=== PATIENT | male | born 1960 | race Caucasian/White ===

== ENCOUNTER 2020-04-03 14:27 | Inpatient (IN) | payer OTHER ==
[~2020-04-03] VITALS: Ht 182.9 cm; Wt 140.6 kg
[~2020-04-03 14:27] MED LIST: ZANTAC 150 MG150 MG PO
[2020-04-03 15:35] LABS: HEMOGLOBIN 14.4 gm/dl (14.0-17.5); RED BLOOD COUNT 4.71 M/UL (4.20-5.50); WHITE BLOOD COUNT 3.3 K/UL (4.5-11.0)
[2020-04-03 16:02] LABS: BUN/CREATININE RATIO 22 (0-10)
[2020-04-03] MEDS ORDERED: VENTOLIN HFA 66.7 GM INH (16:39)
[2020-04-04] MEDS ORDERED: LASIX20 MG PO (01:44)
[2020-04-04] MEDS ORDERED: JANUMET 50-5001 EACH PO (01:44)
[2020-04-04] MEDS ORDERED: LOPRESSOR100 MG PO (01:45)
[2020-04-04] MEDS ORDERED: ALLOPURINOL300 MG PO (01:45)
[2020-04-04] MEDS ORDERED: TEGRETOL 200 M200 MG PO (01:46)
[2020-04-04] MEDS ORDERED: K-DUR TAB 10 M10 MEQ PO (01:46)
[2020-04-04] MEDS ORDERED: FLOMAX 0.4 MG0.4 MG PO (01:47)
[2020-04-04] MEDS ORDERED: FLONASE ALLER15.8 ML (01:48)
[2020-04-04] MEDS ORDERED: FINASTERIDE5 MG PO (01:49)
[2020-04-04] MEDS ORDERED: COZAAR100 MG PO (01:49)
[2020-04-04 02:15] LABS: HEMOGLOBIN 14.2 gm/dl (14.0-17.5); RED BLOOD COUNT 4.72 M/UL (4.20-5.50); WHITE BLOOD COUNT 3.1 K/UL (4.5-11.0)
[2020-04-05 05:59] LABS: HEMOGLOBIN 14.5 gm/dl (14.0-17.5); RED BLOOD COUNT 4.78 M/UL (4.20-5.50)
[2020-04-05 06:01] LABS: WHITE BLOOD COUNT 4.9 K/UL (4.5-11.0)
[2020-04-05 06:19] LABS: BUN/CREATININE RATIO 18 (0-10)
[2020-04-07 06:25] LABS: HEMOGLOBIN 13.6 gm/dl (14.0-17.5); RED BLOOD COUNT 4.52 M/UL (4.20-5.50); WHITE BLOOD COUNT 5.3 K/UL (4.5-11.0)
[2020-04-07 06:54] LABS: BUN/CREATININE RATIO 17 (0-10)
[2020-04-08 13:23] LABS: RED BLOOD COUNT 4.63 M/UL (4.20-5.50); WHITE BLOOD COUNT 4.9 K/UL (4.5-11.0)
[2020-04-08 13:50] LABS: BUN/CREATININE RATIO 20 (0-10)
[2020-04-09 06:59] LABS: HEMOGLOBIN 13.3 gm/dl (14.0-17.5); RED BLOOD COUNT 4.47 M/UL (4.20-5.50); WHITE BLOOD COUNT 5.3 K/UL (4.5-11.0)
[2020-04-09 07:24] LABS: BUN/CREATININE RATIO 18 (0-10)
[2020-04-10] MEDS ORDERED: VENTOLIN HFA 66.7 GM INH (12:44)
[2020-04-10] MEDS ORDERED: DECADRON6 MG PO (12:44)
[2020-04-10] MEDS ORDERED: LOPRESSOR 50 MG50 MG PO (12:44)
== END 2020-04-10 15:00 | disposition home or self-care (01) | DRG 871 ==
LOC: ER1 14:27 → CDU 17:46 → MED SURG 4 17:46 → CDU 17:46 → MED SURG 4 20:53
PROVIDERS: Emergency Medicine; Internal Medicine; Internal Medicine Infectious Disease; ADMIT Internal Medicine
PROC: 8E0ZXY6 Isolation (ICD-10-PCS; principal; 2020-04-03)
PROC: XW033F6 Introduction of Bamlanivimab Monoclonal Antibody into Peripheral Vein, Percutaneous Approach, New Technology Group 6 (ICD-10-PCS; 2020-04-03)
PROC: XW033E5 Introduction of Remdesivir Anti-infective into Peripheral Vein, Percutaneous Approach, New Technology Group 5 (ICD-10-PCS; 2020-04-04)
PROC: XW13325 Transfusion of Convalescent Plasma (Nonautologous) into Peripheral Vein, Percutaneous Approach, New Technology Group 5 (ICD-10-PCS; 2020-04-05)
PROC: 5A09357 Assistance with Respiratory Ventilation, Less than 24 Consecutive Hours, Continuous Positive Airway Pressure (ICD-10-PCS; 2020-04-09)
DX: A41.89 Other specified sepsis (principal); U07.1 COVID-19; J12.82 Pneumonia due to coronavirus disease 2019; J96.01 Acute respiratory failure with hypoxia; J18.9 Pneumonia, unspecified organism; D61.818 Other pancytopenia; Z68.41 Body mass index [BMI] 40.0-44.9, adult; I10 Essential (primary) hypertension; E66.01 Morbid (severe) obesity due to excess calories; K21.9 Gastro-esophageal reflux disease without esophagitis; E11.40 Type 2 diabetes mellitus with diabetic neuropathy, unspecified; D69.6 Thrombocytopenia, unspecified; D72.819 Decreased white blood cell count, unspecified; Z79.899 Other long term (current) drug therapy; Z90.49 Acquired absence of other specified parts of digestive tract
CPT/HCPCS: 36415; 36600; 71045; 80048; 80053; 82550; 82553; 82803; 82962; 83605; 83874; 83880; 84484; 85025; 85379; 85610; 86140; 86900; 86901; 86927; 87040; 94640; 94760; 96365; 96366; 96372; 96375; 96376; 99285; G0378 ×2; J0456; J0696; J1100; J1650; J7030; M0239; U0002

== ENCOUNTER 2020-06-03 14:34 | Emergency (ER) | payer OTHER ==
[~2020-06-03 14:34] MED LIST changes: +ALLOPURINOL300 MG PO; +COZAAR100 MG PO; +DECADRON6 MG PO; +FINASTERIDE5 MG PO; +FLOMAX 0.4 MG0.4 MG PO; +FLONASE ALLER15.8 ML; +JANUMET 50-5001 EACH PO; +K-DUR TAB 10 M10 MEQ PO; +LASIX20 MG PO; +LOPRESSOR 50 MG50 MG PO; +LOPRESSOR100 MG PO; +TEGRETOL 200 M200 MG PO; +VENTOLIN HFA 66.7 GM INH
[2020-06-03 15:25] LABS: HEMOGLOBIN 15.7 gm/dl (14.0-17.5); RED BLOOD COUNT 5.06 M/UL (4.20-5.50); WHITE BLOOD COUNT 4.6 K/UL (4.5-11.0)
[2020-06-03 15:57] LABS: BUN/CREATININE RATIO 20 (0-10)
== END 2020-06-03 17:10 | disposition home or self-care (01) ==
LOC: ER1 14:34
PROVIDERS: Physician Assistant
DX: R07.89 Other chest pain (principal); R00.2 Palpitations; I10 Essential (primary) hypertension; M10.9 Gout, unspecified; Z90.49 Acquired absence of other specified parts of digestive tract
CPT/HCPCS: 36415; 71045; 80053; 82550; 82553; 83874; 84484; 85025; 85379; 93005; 93270; 99285

== ENCOUNTER → 2020-08-17 | Outpatient (CLI) | payer OTHER | LOC: NM 07-13 13:00 → ECHO 12:00 → NM 13:00 | DX: I48.0 Paroxysmal atrial fibrillation (principal); I20.9 Angina pectoris, unspecified; I51.7 Cardiomegaly | CPT/HCPCS: ECHO; 93306 ==